=== PATIENT | female | born 1980 | race Native Hawaiian/Other Pacific Islander ===

== ENCOUNTER 2017-04-09 11:07 | Inpatient (IN) | payer MEDICAID ==
[~2017-04-09] VITALS: Ht 175.3 cm; Wt 176.9 kg
[2017-04-09 11:07] VITALS: BP_SYST 150
[~2017-04-09 11:07] MED LIST: CEPH-568 PO; CLIN-76 PO; LACTIN PO; MYCOLOG15O TP
[2017-04-09 11:52] LABS: BASOPHILS # (AUTO) 0.1 K/uL (0.0-0.2); BASOPHILS % (AUTO) 0.7 % (0.0-2.0); EOSINOPHILS # (AUTO) 0.1 K/uL (0.0-0.4); EOSINOPHILS % (AUTO) 1.2 % (0.0-4.0); HEMATOCRIT 32.6 % (36-48); HEMOGLOBIN 10.6 g/dL (12.0-16.0); LYMPHOCYTES # (AUTO) 2.9 K/uL (1.0-5.5); LYMPHOCYTES % (AUTO) 24.3 % (20.5-51.5); MEAN CORPUSCULAR HEMOGLOBIN 27 pg (27-31); MEAN CORPUSCULAR HGB CONC 33 % (32-36); MEAN CORPUSCULAR VOLUME 84 fL (79.0-98.0); MONOCYTES # (AUTO) 0.7 K/uL (0.0-1.0); MONOCYTES % (AUTO) 5.8 % (1.7-9.3); NEUTROPHILS # (AUTO) 8.2 K/uL (1.8-7.7); PLATELET COUNT (AUTO) 403 K/uL (130-430); RED CELL DISTRIBUTION WIDTH 12.8 % (9.0-15.0)
[2017-04-09 11:57] LABS: BILIRUBIN,URINE 1+ (NEGATIVE); BLOOD, URINE 3+ (NEGATIVE); CLARITY/URINE SL HAZY (CLEAR); COLOR,URINE AMBER (YELLOW); GLUCOSE,URINE NEGATIVE (NEGATIVE); KETONES,URINE TRACE (NEGATIVE); LEUKOCYTE ESTERASE ,URINE NEGATIVE (NEGATIVE); NITRITE, URINE NEGATIVE (NEGATIVE); PH,URINE 5.5 (5.0-8.0); PROTEIN URINE 2+ (NEGATIVE); UROBILINOGEN,URINE 0.2 (0.2-1.0)
[2017-04-09 12:05] LABS: CALCIUM 9.3 mg/dL (8.4-11.0); CREATININE 0.92 mg/dL (0.55-1.30)
[2017-04-09 12:08] LABS: PROTHROMBIN TIME 9.8 SECS (9.5-12.5)
[2017-04-09 12:19] LABS: RBC,URINE 50-80 /HPF (0-3)
[2017-04-09 12:20] LABS: POTASSIUM 2.8 mmol/L (3.5-5.1); TOTAL BILIRUBIN 0.3 mg/dL (0.0-1.0)
[2017-04-09 12:20] LABS: BACTERIA,URINE FEW /HPF (None Seen); WBC,URINE 0-3 /HPF (0-3)
[2017-04-09 12:21] LABS: ALBUMIN 2.6 g/dL (3.4-4.8)
[2017-04-09 12:21] LABS: MUCUS,URINE 2+ /LPF (None Seen)
[2017-04-09] MEDS ORDERED: CEFAZOLIN 1 GM IVPB PREMIX 50 ML IV ONE ×2 (13:30→13:46)
[2017-04-09] MEDS ORDERED: POTASSIUM CHLORIDE 20 MEQ TAB.PRT.SR PO ONE ×2 (13:30→17:00)
[2017-04-09] MEDS ORDERED: POTASSIUM CHLORIDE 20 MEQ TAB.PRT.SR ONE (13:45)
[2017-04-09] MEDS ORDERED: FLU VACC QS 2017-18(36MOS+)/PF 0.5 ML/SYR SYRINGE I.M. PRN (15:45)
[2017-04-09 15:47] VITALS: BP_SYST 139
[2017-04-09] MEDS ORDERED: ZOLPIDEM TARTRATE 5 MG TABLET PO PRN (17:00)
[2017-04-09] MEDS: AMPICILLIN SODIUM/SULBACTAM NA 3 GM in NS 100 ML IV SCH ×2 (18:33→23:13)
[2017-04-09 20:01] VITALS: BP_SYST 128
[2017-04-09] MEDS: ACETAMINOPHEN 325 MG TABLET PO PRN (21:04)
[2017-04-10 00:21] VITALS: BP_SYST 120
[2017-04-10 03:29] VITALS: BP_SYST 119
[2017-04-10] MEDS: AMPICILLIN SODIUM/SULBACTAM NA 3 GM in NS 100 ML IV SCH ×4 (05:28→23:22)
[2017-04-10 06:20] LABS: BASOPHILS % (AUTO) 0.3 % (0.0-2.0); EOSINOPHILS # (AUTO) 0.2 K/uL (0.0-0.4); EOSINOPHILS % (AUTO) 1.8 % (0.0-4.0); LYMPHOCYTES # (AUTO) 2.2 K/uL (1.0-5.5); LYMPHOCYTES % (AUTO) 22.8 % (20.5-51.5); MEAN CORPUSCULAR HEMOGLOBIN 27 pg (27-31); MEAN CORPUSCULAR HGB CONC 32 % (32-36); MEAN CORPUSCULAR VOLUME 84 fL (79.0-98.0); MONOCYTES # (AUTO) 0.6 K/uL (0.0-1.0); NEUTROPHILS # (AUTO) 6.7 K/uL (1.8-7.7); NEUTROPHILS % (AUTO) 69.1 % (40.0-70.0); PLATELET COUNT (AUTO) 365 K/uL (130-430); RED BLOOD CELL COUNT(AUTO) 3.67 MIL/uL (4.2-6.2); RED CELL DISTRIBUTION WIDTH 12.9 % (9.0-15.0); WHITE BLOOD COUNT (AUTO) 9.7 K/uL (4.8-10.8)
[2017-04-10 06:45] LABS: ALBUMIN 2.4 g/dL (3.4-4.8); CREATININE 0.89 mg/dL (0.55-1.30); POTASSIUM 3.3 mmol/L (3.5-5.1); THYROID STIMULATING HORMONE 1.5 uIu/mL (0.34-4.82); TOTAL BILIRUBIN 0.4 mg/dL (0.0-1.0)
[2017-04-10] MEDS: FAMOTIDINE 20 MG TABLET PO SCH (10:05)
[2017-04-10] MEDS: POTASSIUM CHLORIDE 10 MEQ TAB.PRT.SR PO SCH ×2 (10:05→19:00)
[2017-04-10 11:19] VITALS: BP_SYST 137
[2017-04-10 16:29] VITALS: BP_SYST 144
[2017-04-10 20:00] VITALS: BP_SYST 133
[2017-04-11 01:38] VITALS: BP_SYST 147
[2017-04-11 03:31] VITALS: BP_SYST 150
[2017-04-11] MEDS: AMPICILLIN SODIUM/SULBACTAM NA 3 GM in NS 100 ML IV SCH ×2 (05:21→13:06)
[2017-04-11] MEDS: ACETAMINOPHEN 325 MG TABLET PO PRN (05:26)
[2017-04-11 08:00] VITALS: BP_SYST 158
[2017-04-11 08:02] LABS: CREATININE 0.77 mg/dL (0.55-1.30); POTASSIUM 3.4 mmol/L (3.5-5.1)
[2017-04-11] MEDS: FAMOTIDINE 20 MG TABLET PO SCH (09:18)
[2017-04-11 12:34] VITALS: BP_SYST 154
[2017-04-11] MEDS ORDERED: POTASSIUM CHLORIDE 10 MEQ TAB.PRT.SR PO ONE (13:15)
[2017-04-11 14:58] VITALS: BP_SYST 150
== END 2017-04-11 15:05 | disposition home or self-care (01) | DRG 383 ==
LOC: SED 11:07 → SMU 14:35
PROVIDERS: ADMIT Internal Medicine; ATTEND Internal Medicine
DX: L03.116 Cellulitis of left lower limb (principal); E43 Unspecified severe protein-calorie malnutrition; E87.6 Hypokalemia; D64.9 Anemia, unspecified; E66.01 Morbid (severe) obesity due to excess calories; Z82.49 Family history of ischemic heart disease and other diseases of the circulatory system; Z68.43 Body mass index [BMI] 50.0-59.9, adult; Z79.899 Other long term (current) drug therapy
CPT/HCPCS: 36415; 71010; 80048; 80053; 81000-TC; 81025; 83605; 83735-TC; 84443-TC; 84484; 85025; 85610-TC; 85730-TC; 87040-TC; 93005; 93971; 96365; 99285; J0295; J0690; Q2037